=== PATIENT | female | born 1960 | race Caucasian/White ===

== ENCOUNTER 2017-09-22 08:17 | Day surgery (SDC) | payer BC, OTHER ==
[2017-09-18 14:52] VITALS: BMI 25.0
[2017-09-22] MEDS ORDERED: MIDAZOLAM HCL 2 MG/2 ML SINGLE DOSE VIAL ONE (08:59)
[2017-09-22] MEDS ORDERED: LIDOCAINE HCL 2% (20ML MULTI-DOSE VIAL) NR ONE (09:47)
[2017-09-22] MEDS ORDERED: oxyCODONE HCL 5 MG TABLET PO PRN ×2 (10:54)
[2017-09-22] MEDS ORDERED: ONDANSETRON 4 MG/2 ML VIAL IVPUSH PRN (10:54)
[2017-09-22] MEDS ORDERED: LACTATED RINGERS SOLUTION 1,000 ML IV SCH (11:00)
[2017-09-22] MEDS ORDERED: ONDANSETRON 4 MG/2 ML VIAL ONE (11:59)
--- NOTE | 2017-09-22 12:45 | PN ---
Progress Note (short form) - Note Progress Note: 56F s/p left open carpal tunnel release & left 4th trigger finger release POD # 0. -Pain control. -Incentive spirometry. -NWB LUE. -Keep dressing clean & dry. -Percocet ordered to pharmacy for analgesia; OK to use OTC NAID's instead. -Discharge home: f/u [facility] [place] [facility] in 1 week; call for appointment: . Hosea Herrera MD (Orthopaedic Surgery).
--- NOTE | 2017-09-22 12:45 | OP ---
Operative Note - Note: Operative Date: 09/22/17 Pre-Operative Diagnosis: 1. Left wrist/hand carpal tunnel syndrome. 2. Left 4th trigger finger Operation: 1. Left open carpal tunnel release. 2. Left 4th trigger finger release Post-Operative Diagnosis: Same as Pre-op Surgeon: Hosea Herrera Pre Owned Sales Manager: Juan Herrera Anesthesiologist/LAST CHALKER: Juan Manuel Fields Anesthesia: General Estimated Blood Loss (mls): 0 Fluid Volume Replaced (mls): 500 Operative Report Dictated: Yes
[2017-09-22 13:30] VITALS: BP 145/71; PULSE 55; TEMP 98
--- NOTE | 2017-09-22 15:42 | OP ---
Surgeon: Hosea Herrera MD Parcel Post Officer: Juan Herrera MD Pre-Operative Diagnosis: Left wrist/hand carpal tunnel syndrome. Post-Operative Diagnosis: Left wrist/hand carpal tunnel syndrome. Surgical Procedure: Left open carpal tunnel release. Anaesthesia: Sedation, LMA. Position: Supine Incision: Longitudinal. Tourniquet Pressure: 250mmHg. Tourniquet Time: 31 minutes. Estimated Blood Loss: 0cc. Intravenous Fluid: 500cc. Specimens: None. Drains: None. Complications: None. Urine output: None. Bacteriology: None. Transfusions: None. Closure: 3-0 Biosyn. Indications: Leanne Isaacs is a 56 year old female who was indicated for a left open carpal tunnel release in order to ameliorate the symptoms associated with carpal tunnel syndrome, and improve the use of her hand. The patient was identified in the holding area by her armband. A long discussion was held with the patient (in the presence of her family) regarding the risks, benefits and alternatives of the above-named procedure. Risks include but are not limited to: pain, bleeding, infection, damage to surrounding structures (including nerves, blood vessels, skin, ligaments, tendons and bone), reflex sympathetic dystrophy (RSD), incomplete carpal tunnel release, wound complications, need for further surgery, blood clots, myocardial infarction, pulmonary embolism, anesthesia complications, compartment syndrome, limb loss, limp, loss of function, and . Benefits as mentioned above. Alternatives include no surgery. All questions were answered. The patient appeared to understand and agreed to the procedure. Informed consent was obtained, witnessed and verified. The patients correct operative limb - the left upper extremity - was marked, and the patient was taken to the operating room after being seen by the anesthesia and nursing staff. Procedure: The patient was brought into the operating room, placed supine on the OR table and secured with a safety strap. Consent and the operative site was again verified with the patient and nursing and anaesthesia staff. Anaesthesia was then administered without complication. 1g IV Ancef was administered. A time-out was done led by me, the attending surgeon. The patient was positioned with all bony prominences well padded. A tourniquet was placed proximally on the left arm and set to 250mmHg. The operative limb was prepped in standard sterile fashion using betadine prep & scrub, alcohol, and DuraPrep, and then free draped. A time-out was repeated, the left upper extremity was exsanguinated using an Esmarch, the tourniquet was inflated, and the case began. A longitudinal incision was made in line with the radial border of the fourth finger, extending from the volar wrist crease proximally to the intersection of the Melchor cardinal line. Ragnell retractors were used facilitate visualization of the wound. Sharp dissection was carried through the subcutaneous fat and palmar aponeurosis down to the level of the transverse carpal ligament (TCL). The palmaris brevis muscle was visualized, and its ulnar-most fibers were gently feathered off the underlying TCL. The TCL was then incised longitudinally and elevated using a mosquito clamp as the wrist was flexed. With the wrist maintained in a flexed position, the TCL was fully released proximally and distally using Metzenbaum scissors. Proximally, the distal deep fascia of the forearm, and the palmar aponeurosis were released along with the TCL. Distally, great care was taken not to extend the reach of the scissors more than 3-5mm distal to the distal extent of the TCL so as to avoid vascular injury. With finger palpation, full release of the carpal tunnel was assured. A freer elevator was used to mobilize the free flaps of the incised TCL up and off the median nerve, again ensuring its full release. The median nerve was visualized and appeared pale. The palmar cutaneous branch of the median nerve was not seen. The wound was then copiously irrigated using normal saline solution. The skin was closed using a 3-0 Biosyn suture in simple interrupted fashion. A sterile compressive dressing was applied. The sponge and needle counts were correct at the end of the case and I, the attending surgeon, was present and scrubbed throughout the case. The patient then underwent an open release of her left fourth trigger finger, which will be described in a separate dictation. MD HEBER Nava/[id number] MTDD
--- NOTE | 2017-09-25 09:24 | OP ---
DATE OF OPERATION: 09/22/2017 PREOPERATIVE DIAGNOSIS: Left 4th trigger finger. POSTOPERATIVE DIAGNOSIS: Left 4th trigger finger. SURGICAL PROCEDURE: Left open 4th trigger finger release. TOURNIQUET TIME: 31 minutes set at a pressure of 250 mmHg. INTRAVENOUS FLUIDS: 500 mL. COMPLICATIONS: None. BACTERIOLOGY: None. URINE OUTPUT: None. CLOSURE: 3-0 Biosyn. Overall, the operation went well. MD HEBER Nava/[id number]
== END 2017-09-22 13:35 | disposition home or self-care (01) ==
LOC: FASU 08:17
PROVIDERS: ATTEND Orthopaedic Surgery Adult Reconstructive Orthopaedic Surgery
PROC: 01N50ZZ Release Median Nerve, Open Approach (ICD-10-PCS; principal; 2017-09-22 10:47)
PROC: 0LN80ZZ Release Left Hand Tendon, Open Approach (ICD-10-PCS; 2017-09-22 10:47)
DX: G56.02 Carpal tunnel syndrome, left upper limb (principal); M65.342 Trigger finger, left ring finger